=== PATIENT | male | born 1990 | race Caucasian/White ===

== ENCOUNTER 2018-01-19 10:03 | Emergency (ER) | payer SELFPAY ==
[2018-01-19 10:49] LABS: ABSOLUTE LYMPHOCYTES (AUTO) 1.5 10^3/uL (0.5-4.7); ABSOLUTE MONOCYTES (AUTO) 0.4 10^3/uL (0.1-1.4); ABSOLUTE NEUT (AUTO) 4.6 10^3/uL (1.7-8.2); BASOPHILS % (AUTO) 0.4 % (0-2); EOSINOPHILS % (AUTO) 0.7 % (0-6); HEMATOCRIT 38.9 % (37.9-51.0); HEMOGLOBIN 13.4 g/dL (13.5-17.0); LYMPHOCYTES % (AUTO) 22.9 % (13-45); MEAN CORPUSCULAR HEMOGLOBIN 30.7 pg (27.0-33.4); MEAN CORPUSCULAR HGB CONC 34.4 g/dL (32.0-36.0); MEAN CORPUSCULAR VOLUME 89 fl (80-97); MONOCYTES % (AUTO) 6.5 % (3-13); PLATELET COUNT 212 10^3/uL (150-450); RED BLOOD COUNT 4.35 10^6/uL (4.35-5.55); RED CELL DISTRIBUTION WIDTH 13.4 % (11.5-14.0); SEGMENTED NEUTROPHILS % (AUTO) 69.5 % (42-78); TOTAL CELLS COUNTED % (AUTO) 100 %; WHITE BLOOD COUNT 6.7 10^3/uL (4.0-10.5)
--- NOTE | 2018-01-19 10:49 | ER Document Report ---
ED General - General Chief Complaint: Psych Problem Stated Complaint: PSYCH EVAL Time Seen by Provider: 01/19/18 10:27 Mode of Arrival: Ambulatory Information source: Patient, Relative Notes: 28-year-old male history of malignant myopia presents with cousin who is requesting mental health evaluation, patient moved here from [place] where he was living with his mother and his girlfriend, cousin notes that his behavior is odd, patient denies any homicidal suicidal ideations denies any visual hallucinations or auditory hallucinations however his responses are not quite clear TRAVEL OUTSIDE OF THE [place] IN LAST 30 DAYS: No - HPI Onset: Other Onset/Duration: Persistent Quality of pain: No pain Severity: Mild Pain Level: Denies Associated symptoms: Other Exacerbated by: Denies Relieved by: Denies Similar symptoms previously: Yes Recently seen / treated by doctor: No - Related Data Allergies/Adverse Reactions: No Known Allergies Allergy (Unverified 01/19/18 10:53) Past Medical History - Social History Smoking Status: Current Every Day Smoker Cigarette use (# per day): Yes Chew tobacco use (# tins/day): No Smoking Education Provided: No Frequency of alcohol use: None Drug Abuse: Marijuana Family History: Reviewed & Not Pertinent Patient has suicidal ideation: No Patient has homicidal ideation: No Renal/ Medical History: Denies: Hx Peritoneal Dialysis Review of Systems - Review of Systems Notes: REVIEW OF SYSTEMS: CONSTITUTIONAL : Denies fever, chills, or sweats. Denies recent illness. EENT: Denies eye, ear, throat, or mouth pain or symptoms. Denies nasal or sinus congestion or discharge. Denies throat, tongue, or mouth swelling or difficulty swallowing. CARDIOVASCULAR: Denies chest pain. Denies palpitations or racing or irregular heart beat. Denies ankle edema. RESPIRATORY: Denies cough, cold, or chest congestion. Denies shortness of breath, difficulty breathing, or wheezing. GASTROINTESTINAL: Denies abdominal pain or distention. Denies nausea, vomiting , or diarrhea. Denies blood in vomitus, stools, or per rectum. Denies black, tarry stools. Denies constipation. GENITOURINARY: Denies difficulty urinating, painful urination, burning, frequency, blood in urine, or discharge. MUSCULOSKELETAL: Denies back or neck pain or stiffness. Denies joint pain or swelling. SKIN: Denies rash, lesions or sores. HEMATOLOGIC : Denies easy bruising or bleeding. LYMPHATIC: Denies swollen, enlarged glands. NEUROLOGICAL: Denies confusion or altered mental status. Denies passing out or loss of consciousness. Denies dizziness or lightheadedness. Denies headache. Denies weakness or paralysis or loss of use of either side. Denies problems with gait or speech. Denies sensory loss, numbness, or tingling. Denies seizures. PSYCHIATRIC: Denies anxiety or stress. Denies depression, suicidal ideation, or homicidal ideation. Odd behavior per family ALL OTHER SYSTEMS REVIEWED AND NEGATIVE. Dictation was performed using [employer] voice recognition software PHYSICAL EXAMINATION: GENERAL: Well-appearing, well-nourished and in no acute distress. poor hygiene HEAD: Atraumatic, normocephalic. EYES: strabismus noted ENT: Nares patent, oropharynx clear without exudates. Moist mucous membranes. NECK: Normal range of motion, supple without lymphadenopathy LUNGS: Breath sounds clear to auscultation bilaterally and equal. No wheezes rales or rhonchi. HEART: Regular rate and rhythm without murmurs ABDOMEN: Soft, nontender, nondistended abdomen. No guarding, no rebound. No masses appreciated. Musculoskeletal: Normal range of motion, no pitting or edema. No cyanosis. NEUROLOGICAL: Cranial nerves grossly intact. Normal speech, normal gait. Normal sensory, motor exams PSYCH: odd responses to some questions , SKIN: Warm, Dry, normal turgor, no rashes or lesions noted. Physical Exam - Vital signs Vitals: Temp Pulse Resp BP Pulse Ox 98.4 F 86 16 128/68 H 96 01/19/18 10:13 01/19/18 10:13 01/19/18 10:13 01/19/18 10:13 01/19/18 10:13 Course - Re-evaluation Re-evalutation: 01/19/18 14:28 Patient will be kept overnight started on Haldol Cogentin I have concerns of psychosis - Vital Signs Vital signs: Temp Pulse Resp BP Pulse Ox 98.4 F 86 16 128/68 H 96 01/19/18 10:13 01/19/18 10:13 01/19/18 10:13 01/19/18 10:13 01/19/18 10:13 - Laboratory Result Diagrams: 01/19/18 10:37 01/19/18 10:37 Laboratory results interpreted by me: 01/19/18 01/19/18 10:37 10:37 Hgb 13.4 L BUN 21 H Glucose 123 H Alkaline Phosphatase 30 L Total Protein 6.1 L Salicylates < 1.0 L Acetaminophen < 10 L - Diagnostic Test Radiology reviewed: Image reviewed - CT brain notes no acute abnormality, Reports reviewed - EKG Interpretation by Me EKG shows normal: Sinus rhythm, Lawrence, Intervals, QRS Complexes, ST-T Waves Discharge - Discharge Clinical Impression: Psychosis Qualifiers: Psychosis type: unspecified psychosis type Qualified Code(s): F29 - Unspecified psychosis not due to a substance or known physiological condition Condition: Stable Disposition: PSYCH HOSP/UNIT
[2018-01-19 11:03] LABS: APPEARANCE,URINE CLEAR; BILIRUBIN,URINE NEGATIVE (NEGATIVE); COLOR,URINE YELLOW; GLUCOSE, URINE NEGATIVE (NEGATIVE); KETONES,URINE NEGATIVE (NEGATIVE); LEUKOCYTE ESTERASE,URINE NEGATIVE (NEGATIVE); NITRITE,URINE NEGATIVE (NEGATIVE); PROTEIN,URINE NEGATIVE (NEGATIVE); UROBILINOGEN,URINE NEGATIVE mg/dL (<2.0)
[2018-01-19 11:09] LABS: ALANINE AMINOTRANSFERASE 35 U/L (21-72); ALBUMIN 4.2 g/dL (3.5-5.0); ALKALINE PHOSPHATASE 30 U/L (38-126); ANION GAP 8 (5-19); ASPARTATE AMINO TRANSFERASE 22 U/L (17-59); BILIRUBIN,DIRECT 0.1 mg/dL (0.0-0.4); BILIRUBIN,TOTAL 0.5 mg/dL (0.2-1.3); BLOOD UREA NITROGEN 21 mg/dL (7-20); CALCIUM 9.6 mg/dL (8.4-10.2); CARBON DIOXIDE 27 mmol/L (22-30); CHLORIDE 104 mmol/L (98-107); GLUCOSE 123 mg/dL (75-110); POTASSIUM 4.3 mmol/L (3.6-5.0); SODIUM 138.7 mmol/L (137-145); TOTAL PROTEIN 6.1 g/dL (6.3-8.2)
[2018-01-19 11:13] LABS: ACETAMINOPHEN < 10 ug/mL (10-30); ALCOHOL < 10 mg/dL (NONE DETECTED); SALICYLATE < 1.0 mg/dL (2.0-20.0)
[2018-01-19 11:18] LABS: URINE AMPHETAMINES SCREEN NEGATIVE; URINE BARBITURATES SCREEN NEGATIVE; URINE BENZODIAZEPINES SCREEN NEGATIVE; URINE COCAINE SCREEN NEGATIVE; URINE MARIJUANA (THC) SCREEN UNCONFIRMED POSITIVE; URINE METHADONE SCREEN NEGATIVE; URINE PHENCYCLIDINE SCREEN NEGATIVE
--- NOTE | 2018-01-19 11:18 | RADIOLOGY REPORT (SQ) ---
EXAM DESCRIPTION: CT HEAD WITHOUT COMPLETED DATE/TIME: 01/19/2018 11:09 am REASON FOR STUDY: behavioral changes COMPARISON: None. TECHNIQUE: Axial images acquired through the brain without intravenous contrast. Images reviewed wi th bone, brain and subdural windows. Additional sagittal and coronal reconstructions were generated. Images stored on PACS. All CT scanners at this facility use dose modulation, iterative reconstruction, and/or weight based d osing when appropriate to reduce radiation dose to as low as reasonably achievable (ALARA). [facility]: Dose Right [facility]: CareDose [facility]: Dose Right [facility]: Teradose 4D [facility]: SecretSales RADIATION DOSE: CT Rad equipment meets quality standard of care and radiation dose reduction techniq ues were employed. CTDIvol: 48.6 mGy. DLP: 978 mGy-cm. mGy. LIMITATIONS: None. FINDINGS: VENTRICLES: Normal size and contour. CEREBRUM: No masses. No hemorrhage. No midline shift. No evidence for acute infarction. Normal gra y/white matter differentiation. No areas of low density in the white matter. CEREBELLUM: No masses. No hemorrhage. No alteration of density. No evidence for acute infarction. EXTRAAXIAL SPACES: No fluid collections. No masses. ORBITS AND GLOBE: No intra- or extraconal masses. Normal contour of globe without masses. CALVARIUM: No fracture. PARANASAL SINUSES: No fluid or mucosal thickening. SOFT TISSUES: No mass or hematoma. OTHER: No other significant finding. IMPRESSION: NORMAL BRAIN CT WITHOUT CONTRAST. EVIDENCE OF ACUTE STROKE: NO. COMMENT: Quality ID # [id number]: Final reports with documentation of one or more dose reduction techniques (e.g., Automated exposure control, adjustment of the mA and/or kV according to patient size, use of iterative reconstruction technique) TECHNICAL DOCUMENTATION: JOB ID: [id number] [employer]- All Rights Reserved Reading location - IP/workstation name: [email or web address]
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
[2018-01-19] MEDS: HALOPERIDOL 5 MG TABLET PO SCH (16:19)
[2018-01-19] MEDS: BENZTROPINE MESYLATE 1 MG TABLET PO SCH (16:30)
--- NOTE | 2018-01-19 16:44 | EKG REPORT ---
SEVERITY:- NORMAL ECG - SINUS RHYTHM : Confirmed by: Sydney Ward 19-Jan-2018 16:42:21
[2018-01-20] MEDS ORDERED: BENZTROPINE MESYLATE 1 MG TABLET PO ONE (10:15)
[2018-01-20] MEDS: HALOPERIDOL 5 MG TABLET PO SCH (10:18)
--- NOTE | 2018-01-20 11:12 | ER Document Report ---
Doctor's Note Notes: 01/20/18 11:11 Chart reviewed, including mental health notes, initial physician's evaluation, lab and vital signs, patient remained stable overnight, no complaints at present time, pending disposition recommendations from mental health team
[2018-01-20] MEDS ORDERED: OLANZAPINE 5 MG TABLET PO SCH (14:00)
[2018-01-20] MEDS ORDERED: OLANZAPINE 5 MG TABLET PO ONE (15:00)
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
[2018-01-21 05:20] VITALS: BP 113/64
[2018-01-21] MEDS: OLANZAPINE 5 MG TABLET PO SCH ×2 (05:23→10:14)
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
[2018-01-21] MEDS: BENZTROPINE MESYLATE 1 MG TABLET PO SCH (10:14)
--- NOTE | 2018-01-21 13:06 | ER Document Report ---
Doctor's Note Notes: 01/21/18 13:01 Patient resting comfortably, was placed in a hallway bed yesterday evening as deep cleaning is going on in the psychiatric area of the emergency department, he did have some complaints regarding this as well as the fact that he was given a container with saline and put his contacts in but nobody placed his name on the container, initially the plan was for patient to be discharged today to the care of his cousin and both of them were going to drive back to [place] to patient's parents were he would reside and follow up with outpatient mental health treatment, however patient was initially not agreeable to this plan stating that he does not wish to live with his parents because his mother is quite controlling and seems to be 1 of his major stressors, there is also a trip planned to [place] for a family wedding, patient does not wish to fly on a [employer] airplane with his parents because his mother is quite difficult to flight with, after much more discussion and the family session with the mental health team patient will now be discharged to the care of his cousin, they plan to remain in [place] for the next few days, skip the wedding in [place] and then drive back to [place] where patient can follow-up as an outpatient, he will be given a prescription for Zyprexa and Cogentin, as well as instructions for follow-up locally if he continues to have any additional concerns, patient and cousin at bedside are in agreement with this plan, patient is not homicidal or suicidal at this point in time, he also does not appear to be acutely psychotic anymore, therefore IVC will be rescinded, patient will be discharged to the care of his cousin, advised to follow-up appropriately or return if symptoms worsen, patient and cousin acknowledge understanding and agreement with this plan Discharge - Discharge Clinical Impression: Cannabis use disorder, mild, abuse Psychosis Qualifiers: Psychosis type: unspecified psychosis type Qualified Code(s): F29 - Unspecified psychosis not due to a substance or known physiological condition Condition: Stable Disposition: HOME, SELF-CARE Additional Instructions: Counseling Services It has been recommended that you seek professional counseling to assist you with the stresses that you are experiencing. Most people at some time in their lives experience personal problems with which they need help. Pride and feeling that one can't be helped keep a lot of people from the benefits of counseling. Follow up care: Patient was provided education on mental health, substance use and correlation of health outcomes. Clinician observed patient was under immense amount of stress ( per patient report), had substance use history ( alcohol and marijuana wax,buds, and oils) and having difficulty with emotion/ mood regulation. At this time patient is able to regulate his emotions and is not in a crisis. Patient's needs can be best met in an outpatient setting. It is our recommendation for patient to utilize his natural support system and receive assistance by his family in obtaining an outpatient therapy/medication management appointment in [place] as they are more familiar with the outpatient providers in the surrounding area. Mental health coordinated with patient's cousin Abigail Bautista who agreed to assist patient in getting home to [place] and picking up his prescribed medications. Prescriptions: Benztropine Mesylate 1 mg PO DAILY #30 tablet Olanzapine [Zyprexa 5 mg Tablet] 5 mg PO Q12 #60 tablet
== END 2018-01-21 13:18 | disposition home or self-care (01) ==
LOC: ER 10:03
DX: F29 Unspecified psychosis not due to a substance or known physiological condition (principal); F12.10 Cannabis abuse, uncomplicated; F17.210 Nicotine dependence, cigarettes, uncomplicated; H50.9 Unspecified strabismus
CPT/HCPCS: 36415; 70450; 80053; 80307; 81001; 85025; 93005; 93010; 99285